=== PATIENT | male | born 1965 | race Caucasian/White ===

== ENCOUNTER 2017-08-29 17:52 | Emergency (ER) | payer BC ==
[~2017-08-29] VITALS: Ht 180.3 cm; Wt 82.1 kg
[2017-08-29 19:24] LABS: CARBON DIOXIDE (BICARBONATE) 28.7 MEQ/L (20-31)
[2017-08-29 19:32] LABS: ALBUMIN 4.6 g/dL (3.2-4.8); CHLORIDE 84 mEq/L (99-109); POTASSIUM 3.2 mEq/L (3.7-5.4); SODIUM 125 mEq/L (136-147)
[2017-08-29 19:34] LABS: TOTAL PROTEIN 8.4 g/dL (6.4-8.3)
[2017-08-29 19:36] LABS: TOTAL BILIRUBIN 0.3 mg/dL (0.0-1.0)
[2017-08-29 19:38] LABS: ALKALINE PHOSPHATASE 105 IU/L (3-129); CREATININE 1.7 mg/dL (0.6-1.3); GFR ESTIMATE (CALCULATED) 45 mL/min/ (58.99-99999)
[2017-08-29 19:39] LABS: UREA NITROGEN (BUN) 25 mg/dL (9-23)
[2017-08-29 19:40] LABS: AST (GOT) 70 IU/L (2-34)
[2017-08-29 19:41] LABS: ALT (GPT) 145 IU/L (3-49)
[2017-08-29 19:42] LABS: PLATELET COUNT 230 K/uL (156-360)
[2017-08-29 19:49] LABS: GLUCOSE 594 mg/dL (70-99)
[2017-08-29 20:56] LABS: HEMATOCRIT 42.5 % (38.0-50.0); HEMOGLOBIN 15.7 G/DL (12.5-16.6); MCH 30.5 PG (29.0-34.0); MCHC 36.9 G/DL (30.0-36.0); MCV 82.5 FL (86-99); RBC DIS.WIDTH-CV 11.8 % (11.8-14.6); RBC DIS.WIDTH-SD 35.5 % (39-53); RED BLOOD COUNT 5.15 M/uL (4.00-5.50)
[2017-08-29 22:26] LABS: POTASSIUM 2.8 mEq/L (3.7-5.4)
[2017-08-29 22:32] LABS: UREA NITROGEN (BUN) 21 mg/dL (9-23)
[2017-08-29 22:34] LABS: CHLORIDE 94 mEq/L (99-109); CREATININE 1.2 mg/dL (0.6-1.3); GFR ESTIMATE (CALCULATED) > 59 mL/min/ (58.99-99999); GLUCOSE 162 mg/dL (70-99); SODIUM 134 mEq/L (136-147)
[2017-08-29] MEDS ORDERED: METFORMIN HCL500 MG PO (22:46)
[2017-08-29 22:48] LABS: APPEARANCE CLEAR ((CLEAR)); BILIRUBIN NEGATIVE; BLOOD NEGATIVE; COLOR STRAW ((YELLOW)); GLUCOSE (STRIP) >=500; KETONES NEGATIVE; LEUKOCYTES NEGATIVE; NITRITE NEGATIVE; PROTEIN (STRIP) NEGATIVE; UCUL ADDED? NO; UROBILINOGEN 0.2 MG/DL (0.2-1.0)
[2017-08-29] MEDS ORDERED: K-DUR20 MEQ PO (22:53)
[2017-08-29 23:27] VITALS: BP 140/87
[2017-09-07] MEDS ORDERED: AMLODIPINE BESYL5 MG PO (13:02)
[2017-09-07] MEDS ORDERED: ADULT ASPIRIN81 MG PO (13:02)
[2017-09-07] MEDS ORDERED: CHLORTHALIDONE50 MG PO (13:02)
[2017-09-07] MEDS ORDERED: PRILOSEC OTC20 MG PO (13:03)
[2017-09-07] MEDS ORDERED: ALTACE10 MG PO (13:03)
[2017-09-07] MEDS ORDERED: CILOSTAZOL100 MG PO (13:03)
[2017-09-07] MEDS ORDERED: LYRICA100 MG PO (13:03)
[2017-09-07] MEDS ORDERED: SPIRIVA1 INHALATI IH (13:25)
== END 2017-08-29 23:28 | disposition home or self-care (01) ==
LOC: EME 17:52
PROVIDERS: Emergency Medicine
DX: E11.65 Type 2 diabetes mellitus with hyperglycemia (principal); E87.6 Hypokalemia; F17.200 Nicotine dependence, unspecified, uncomplicated
CPT/HCPCS: 80048 91; 80053; 81003; 82010; 82803; 82948; 85027; 99281; 99285; J7030

== ENCOUNTER → 2017-09-04 | Outpatient (CLI) | payer BC ==
[~2017-09-04] MED LIST: K-DUR20 MEQ PO; METFORMIN HCL500 MG PO
== END | disposition home or self-care (01) ==
LOC: CDC 10:16
DX: Z01.810 Encounter for preprocedural cardiovascular examination (principal); I10 Essential (primary) hypertension; L72.3 Sebaceous cyst; F17.200 Nicotine dependence, unspecified, uncomplicated; E11.42 Type 2 diabetes mellitus with diabetic polyneuropathy; R94.31 Abnormal electrocardiogram [ECG] [EKG]
CPT/HCPCS: 93000